=== PATIENT | male | born 1980 | race Caucasian/White ===

== ENCOUNTER 2019-03-20 14:54 | Inpatient (IN) | payer OTHER ==
--- NOTE | 2019-03-20 15:05 | Emergency Department Report ---
Blank Doc - Documentation Documentation: 39-year-old male that presents with right eye pain and right sided headache. D enies any injruies or trauma. Has blurry vision to right eye. This initial assessment/diagnostic orders/clinical plan/treatment(s) is/are subject to change based on patient's health status, clinical progression and re- assessment by fellow clinical providers in the ED. Further treatment and workup at subsequent clinical providers discretion. Patient/guardians urged not to elope from the ED as their condition may be serious if not clinically assessed and managed. Initial orders include: 1- Patient sent to MAIN ED for further evaluation and treatment 2- CT head 3- labs 4- Visual testing/gonzales lamp/tonopen
[2019-03-20 15:36] LABS: Bilirubin,Urine NEG (Negative); Blood,Urine NEG (Negative); Color,Urine Yellow (Yellow); Mucus,Urine FEW /HPF; Protein,Urine <15 mg/dL mg/dL (Negative); Urobilinogen,Urine < 2.0 mg/dL (<2.0)
[2019-03-20 15:57] LABS: Basophils % (Auto) 0.2 % (0.0-1.8); Eosinophils # (Auto) 0.1 K/mm3 (0.0-0.4); Eosinophils % (Auto) 0.9 % (0.0-4.3); Hematocrit 42.2 % (35.5-45.6); Hemoglobin 13.8 gm/dl (11.8-15.2); Lymphocytes # (Auto) 0.9 K/mm3 (1.2-5.4); Lymphocytes % (Auto) 11.1 % (13.4-35.0); Mean Corpuscular HGB Conc 33 % (32-34); Mean Corpuscular Volume 80 fl (84-94); Monocytes # (Auto) 0.5 K/mm3 (0.0-0.8); Monocytes % (Auto) 5.6 % (0.0-7.3); Platelet Count 245 K/mm3 (140-440); Red Blood Count 5.31 M/mm3 (3.65-5.03); Red Cell Distribution Width 13.6 % (13.2-15.2)
[2019-03-20] MEDS ORDERED: SODIUM CHLORIDE 0.9% 500 ML 500 ML IV ONE (16:03)
[2019-03-20 16:07] LABS: Alanine Aminotransferase 18 units/L (7-56); Albumin 4.4 g/dL (3.9-5); BUN/Creatinine Ratio 22; Blood Urea Nitrogen 13 mg/dL (9-20); Calcium 9.3 mg/dL (8.4-10.2); Hemolysis Index 6
--- NOTE | 2019-03-20 16:07 | Event Note ---
Date of service: 03/20/19 Face to Face: Patient is a 39-year-old gentleman, presenting with painless right-sided monocular blurry loss of vision. Last known well time is 9 o'clock in the morning. Patient clinically sober with a GCS of 15. He has a nonfocal motor examination and no facial droop and is speaking in full sentences, however, he is found to have a presumed right sided intranuclear ophthalmoplegia. Presents more than 4.5 hours after symptom onset, and is therefore not a TPA candidate. He does not have any neck pain or stiffness, and has no meningeal signs. Seen in consultation with stroke neurology. CT angiogram head and neck ordered to exclude large vessel occlusion and/or aneurysm. Hypertension reviewed and appreciated, hydralazine ordered. Noncontrast CT scan of the brain is negative for acute disease. Screening laboratory studies are reviewed and appreciated. Vital Signs 03/20/19 03/20/19 03/20/19 15:05 15:57 16:58 Temperature 97.6 F 97.7 F Pulse Rate 65 54 L 52 L Respiratory 18 18 Rate Blood Pressure 197/93 189/86 Blood Pressure 190/87 [Right] O2 Sat by Pulse 100 96 Oximetry Lab Results 03/20/19 03/20/19 03/20/19 Range/Units 15:26 15:35 15:35 WBC 8.1 (4.5-11.0) K/mm3 RBC 5.31 H (3.65-5.03) M/mm3 Hgb 13.8 (11.8-15.2) gm/dl Hct 42.2 (35.5-45.6) % MCV 80 L (84-94) fl MCH 26 L (28-32) pg MCHC 33 (32-34) % RDW 13.6 (13.2-15.2) % Plt Count 245 (140-440) K/mm3 Lymph % (Auto) 11.1 L (13.4-35.0) % [place] % (Auto) 5.6 (0.0-7.3) % Eos % (Auto) 0.9 (0.0-4.3) % Baso % (Auto) 0.2 (0.0-1.8) % Lymph # 0.9 L (1.2-5.4) K/mm3 [place] # 0.5 (0.0-0.8) K/mm3 Eos # 0.1 (0.0-0.4) K/mm3 Baso # 0.0 (0.0-0.1) K/mm3 Seg Neutrophils % 82.2 H (40.0-70.0) % Seg Neutrophils # 6.7 (1.8-7.7) K/mm3 PT (12.2-14.9) Sec. INR (0.87-1.13) APTT (24.2-36.6) Sec. Thrombin Time (15.1-19.6) Sec. Sodium 139 (137-145) mmol/L Potassium 3.9 (3.6-5.0) mmol/L Chloride 103.2 (98-107) mmol/L Carbon Dioxide 22 (22-30) mmol/L Anion Gap 18 mmol/L BUN 13 (9-20) mg/dL Creatinine 0.6 L (0.8-1.5) mg/dL Estimated GFR > 60 ml/min BUN/Creatinine Ratio 22 % Glucose 111 H (75-100) mg/dL Calcium 9.3 (8.4-10.2) mg/dL Total Bilirubin 0.70 (0.1-1.2) mg/dL AST 20 (5-40) units/L ALT 18 (7-56) units/L Alkaline Phosphatase 66 (35-129) units/L Total Creatine Kinase (55-170) units/L CK-MB (CK-2) (0.0-4.0) ng/mL CK-MB (CK-2) Rel Index (0-4) Troponin T (0.00-0.029) ng/mL Total Protein 7.5 (6.3-8.2) g/dL Albumin 4.4 (3.9-5) g/dL Albumin/Globulin Ratio 1.4 % Urine Color Yellow (Yellow) Urine Turbidity Clear (Clear) Urine pH 7.0 (5.0-7.0) Ur Specific [place] 1.018 (1.003-1.030) Urine Protein <15 mg/dl (Negative) mg/dL Urine Glucose (UA) Neg (Negative) mg/dL Urine Ketones Neg (Negative) mg/dL Urine Blood Neg (Negative) Urine Nitrite Neg (Negative) Urine Bilirubin Neg (Negative) Urine Urobilinogen < 2.0 (<2.0) mg/dL Ur Leukocyte Esterase Neg (Negative) Urine WBC (Auto) 2.0 (0.0-6.0) /HPF Urine RBC (Auto) 2.0 (0.0-6.0) /HPF U Epithel Cells (Auto) < 1.0 (0-13.0) /HPF Urine Mucus Few /HPF 03/20/19 03/20/19 Range/Units 16:08 16:08 WBC (4.5-11.0) K/mm3 RBC (3.65-5.03) M/mm3 Hgb (11.8-15.2) gm/dl Hct (35.5-45.6) % MCV (84-94) fl MCH (28-32) pg MCHC (32-34) % RDW (13.2-15.2) % Plt Count (140-440) K/mm3 Lymph % (Auto) (13.4-35.0) % [place] % (Auto) (0.0-7.3) % Eos % (Auto) (0.0-4.3) % Baso % (Auto) (0.0-1.8) % Lymph # (1.2-5.4) K/mm3 [place] # (0.0-0.8) K/mm3 Eos # (0.0-0.4) K/mm3 Baso # (0.0-0.1) K/mm3 Seg Neutrophils % (40.0-70.0) % Seg Neutrophils # (1.8-7.7) K/mm3 PT 12.4 (12.2-14.9) Sec. INR 0.92 (0.87-1.13) APTT 27.3 (24.2-36.6) Sec. Thrombin Time 15.2 (15.1-19.6) Sec. Sodium (137-145) mmol/L Potassium (3.6-5.0) mmol/L Chloride (98-107) mmol/L Carbon Dioxide (22-30) mmol/L Anion Gap mmol/L BUN (9-20) mg/dL Creatinine (0.8-1.5) mg/dL Estimated GFR ml/min BUN/Creatinine Ratio % Glucose (75-100) mg/dL Calcium (8.4-10.2) mg/dL Total Bilirubin (0.1-1.2) mg/dL AST (5-40) units/L ALT (7-56) units/L Alkaline Phosphatase (35-129) units/L Total Creatine Kinase 151 (55-170) units/L CK-MB (CK-2) 2.7 (0.0-4.0) ng/mL CK-MB (CK-2) Rel Index 1.7 (0-4) Troponin T < 0.010 (0.00-0.029) ng/mL Total Protein (6.3-8.2) g/dL Albumin (3.9-5) g/dL Albumin/Globulin Ratio % Urine Color (Yellow) Urine Turbidity (Clear) Urine pH (5.0-7.0) Ur Specific [place] (1.003-1.030) Urine Protein (Negative) mg/dL Urine Glucose (UA) (Negative) mg/dL Urine Ketones (Negative) mg/dL Urine Blood (Negative) Urine Nitrite (Negative) Urine Bilirubin (Negative) Urine Urobilinogen (<2.0) mg/dL Ur Leukocyte Esterase (Negative) Urine WBC (Auto) (0.0-6.0) /HPF Urine RBC (Auto) (0.0-6.0) /HPF U Epithel Cells (Auto) (0-13.0) /HPF Urine Mucus /HPF
[2019-03-20] MEDS ORDERED: hydrALAZINE 20 MG/1 ML INJ IV ONE (16:11)
--- NOTE | 2019-03-20 16:14 | Consultation ---
History of Present Illness Consult date: 03/20/19 Medications and Allergies Allergies Allergy/AdvReac Type Severity Reaction Status Date / Time No Known Allergies Allergy Unverified 03/20/19 14:57 Active Meds: Active Medications Sodium Chloride (Nacl 0.9% 500 Ml) 500 mls @ 999 mls/hr IV ONCE ONE Stop: 03/20/19 16:33 Physical Examination - Vital Signs Vital Signs: Vital Signs Temp Pulse Resp BP Pulse Ox 97.6 F 65 18 197/93 100 03/20/19 15:05 03/20/19 15:05 03/20/19 15:05 03/20/19 15:05 03/20/19 15:05 Results - Laboratory Findings CBC and BMP: 03/20/19 15:35 03/20/19 15:35 Abnormal Lab Findings: Abnormal Labs 03/20/19 03/20/19 15:35 15:35 RBC 5.31 H MCV 80 L MCH 26 L Lymph % (Auto) 11.1 L Lymph # 0.9 L Seg Neutrophils % 82.2 H Creatinine 0.6 L Glucose 111 H Assessment and Plan [facility] Date of Service: 03/20/2019 16:47:43 Impression: RO Acute Ischemic Stroke vs demyelination Comments: patient presents with headache, nausea and vomiting, diplopia, concern for posterior circulation stroke vs demyelination in this age group, last time known well>4.5 hours therefore not a candidate for IV tPA. due to gaze impairment will get CTA head and neck to rule out Large Vessel Occlusion Mechanism of Stroke: Possible Thromboembolic Possible Cardioembolic Small Vessel Disease Metrics: Last Known Well: 03/20/2019 16:50:21 [facility] Notification Time: 03/20/2019 16:47:43 Arrival Time: 03/20/2019 14:54:00 Stamp Time: 03/20/2019 16:47:43 Time First Login Attempt: 03/20/2019 16:50:00 Video Start Time: 03/20/2019 16:50:00 Symptoms: nausea and vomiting, headache, double vision NIHSS Start Assessment Time: 03/20/2019 16:50:07 Patient is not a candidate for tPA. Patient was not deemed candidate for tPA thrombolytics because of Last Well Known Above 4.5 Hours. Video End Time: 03/20/2019 16:56:40 CT head showed no acute hemorrhage or acute core infarct. CT head was reviewed. Advanced imaging CTA head and neck obtained. ER Physician notified of the decision on thrombolytics management on 03/20/2019 16:56:25 Our recommendations are outlined below. Recommendations: Activate Stroke Protocol Admission/Order Set Stroke/Telemetry Floor Neuro Checks Bedside Swallow Eval DVT Prophylaxis IV Fluids, Normal Saline Head of Bed Below 30 Degrees Euglycemia and Avoid Hyperthermia (PRN Acetaminophen) Antiplatelet Therapy Recommended Recommended Scan: MRI Head with and Without Contrast Echocardiogram - Transthoracic Echocardiogram Lipid Panel to Be Obtained, if Not Done in the Last Three Months Therapies: Physical Therapy, Occupational Therapy, Speech Therapy Assessment When Applicable Dysphaghia Screen: Swallow Evaluation, Bedside NPO Until Swallow Evaluation DVT prophylaxis: SCDs, Pneumatic Compression Disposition: Follow up with Teleneurology Follow up Sign Out: Discussed with Emergency Department Provider History of Present Illness: Patient is a 39 year old Male. Patient was brought by private transportation with symptoms of nausea and vomiting, headache, double vision Patient is a(n) 39 years old male , with no past medical history last known well: 9:00 Started vomiting, right eye blurriness, double vision, headache CT head showed no acute hemorrhage or acute core infarct. CT head was reviewed. Last seen normal was beyond 4.5 hours of presentation. There is no history of hemorrhagic complications or intracranial hemorrhage. There is no history of Recent Anticoagulants. There is no history of recent major surgery. There is no history of recent stroke. Examination: 1A: Level of Consciousness - Alert; keenly responsive + 0 1B: Ask Month and Age - Both Questions Right + 0 1C: Blink Eyes & Squeeze Hands - Performs Both Tasks + 0 2: Test Horizontal Extraocular Movements - Forced Gaze Palsy: Cannot Be Overcome + 2 3: Test Visual Odom - No Visual Loss + 0 4: Test Facial Palsy (Use Grimace if Obtunded) - Normal symmetry + 0 5A: Test Left Arm Motor Drift - No Drift for 10 Seconds + 0 5B: Test Right Arm Motor Drift - No Drift for 10 Seconds + 0 6A: Test Left Leg Motor Drift - No Drift for 5 Seconds + 0 6B: Test Right Leg Motor Drift - No Drift for 5 Seconds + 0 7: Test Limb Ataxia (FNF/Heel-[place]) - No Ataxia + 0 8: Test Sensation - Normal; No sensory loss + 0 9: Test Language/Aphasia - Normal; No aphasia + 0 10: Test Dysarthria - Normal + 0 11: Test Extinction/Inattention - No abnormality + 0 NIHSS Score: 2 Patient was informed the Neurology Consult would happen via TeleHealth consult by way of interactive audio and video telecommunications and consented to receiving care in this manner. Due to the immediate potential for life-threatening deterioration due to under lying acute neurologic illness, I spent 35 minutes providing critical care. This time includes time for face to face visit via telemedicine, review of medical records, imaging studies and discussion of findings with providers, the patient and/or family. Dr Rambo Noel [facility] Case [id number]
[2019-03-20 16:33] LABS: Creatine Kinase MB 2.7 ng/mL (0.0-4.0)
[2019-03-20 16:40] LABS: INR 0.92 (0.87-1.13)
[2019-03-20 16:41] LABS: Partial Thromboplastin Time 27.3 Sec. (24.2-36.6); Thrombin Time 15.2 Sec. (15.1-19.6)
--- NOTE | 2019-03-20 16:58 | Cat Scan Report ---
CT HEAD WITHOUT CONTRAST INDICATION / CLINICAL INFORMATION: headache and right sided eye pain. TECHNIQUE: All CT scans at this location are performed using CT dose reduction for ALARA by means of automated e xposure control. COMPARISON: None available. FINDINGS: HEMORRHAGE: No evidence of intracranial hemorrhage or extra-axial fluid collection. EXTRA-AXIAL SPACES: Cortical sulci, sylvian fissures and basilar cisterns have an unremarkable appear ance. VENTRICULAR SYSTEM: The ventricular system is of normal size and configuration. CEREBRAL PARENCHYMA: No areas of abnormal brain parenchymal attenuation are identified. There is no i ndication of recent infarction. MIDLINE SHIFT OR HERNIATION: There is no mass effect. CEREBELLUM / BRAINSTEM: Brainstem and cerebellum have an unremarkable appearance. INTRACRANIAL VESSELS:No abnormalities are identified on this noncontrast head CT. ORBITS: visualized portions of the orbits have an unremarkable appearance. SOFT TISSUES of HEAD: No significant abnormality. CALVARIUM: Evaluation of bone windows reveals no abnormalities. PARANASAL SINUSES / MASTOID AIR CELLS: Mild inflammatory mucosal changes are present within several e thmoid air cells bilaterally and within both maxillary sinuses. ADDITIONAL FINDINGS: None. IMPRESSION: 1. No intracranial abnormality on head CT without contrast. Code stroke: I called report to Dr. Ray of the [facility] emergency department at about 1552 (Central standard time). Signer Name: Fransico Garcia MD Signed: 03/20/2019 4:54 PM Workstation Name: [id number]
--- NOTE | 2019-03-20 17:41 | Emergency Department Report ---
<SHEA ORLANDO - Last Filed: 03/20/19 17:59> ED Neuro Deficit HPI - General Chief Complaint: Neuro Symptoms/Deficit Stated Complaint: RT SIDE BLURRY/NUMB Time Seen by Provider: 03/20/19 15:03 Source: patient Mode of arrival: Ambulatory Limitations: No Limitations - History of Present Illness Initial Comments: pt is a 39-year-old male presents emergency room with complaints of right eye blurriness that began suddenly at 9 AM this morning. He states that he went to work and then began to feel symptoms afterwards. States he then had an episode of vomiting. He is complaining of double vision, dizziness, lightheadedness, h eadache, nausea, vomiting, tingling in the right side of his face. He denies any complete numbness or unilateral weakness, CP, SOB. He denies ever having this in the past. He denies any past medical history, daily medications, allergies medications. - Related Data Home Medications: Home Medications Medication Instructions Recorded Confirmed Last Taken No Known Home Medications [No 03/20/19 03/20/19 Unknown Reported Home Medications] Allergies/Adverse Reactions: Allergies Allergy/AdvReac Type Severity Reaction Status Date / Time No Known Allergies Allergy Unverified 03/20/19 14:57 ED Review of Systems Comment: All other systems reviewed and negative ED Past Medical Hx - Past Medical History Previous Medical History?: No - Surgical History Past Surgical History?: No - Social History Smoking Status: Never Smoker Substance Use Type: None - Medications Home Medications: Home Medications Medication Instructions Recorded Confirmed Last Taken Type No Known Home Medications [No 03/20/19 03/20/19 Unknown History Reported Home Medications] ED Neuro Physical Exam - General Limitations: No Limitations General appearance: alert, in no apparent distress Suspected Stroke: Yes - Head Head exam: Present: atraumatic, normocephalic - Eye Eye exam: Present: PERRL, other (with horizontal movement of the eyes the right eye remains fixed or exhibits nystagmus). Absent: scleral icterus, conjunctival injection, periorbital swelling, periorbital tenderness - ENT ENT exam: Present: mucous membranes moist - Respiratory Respiratory exam: Present: normal lung sounds bilaterally. Absent: respiratory distress, wheezes, rales, rhonchi, stridor, chest wall tenderness, accessory muscle use, decreased breath sounds, prolonged expiratory - Cardiovascular Cardiovascular Exam: Present: regular rate, normal rhythm, normal heart sounds. Absent: systolic murmur, diastolic murmur, rubs, gallop - Neurological Exam Neurological exam: Present: alert, oriented X3 - NIHSS Assessment Interval: Baseline 1a. Level of Consciousness: alert/keenly responsive 1b. LOC Questions: answers both correctly 1c. LOC Commands: performs tasks correctly 2. Best Gaze: forced deviation 3. Visual: no visual loss 4. Facial Palsy: normal symmetrical movement 5b. Motor Arm Right: no drift 5a. Motor Arm Left: no drift 6a. Motor Leg Left: no drift 6b. Motor Leg Right: no drift 7. Limb Ataxia: absent 8. Sensory: normal 9. Best Language: no aphasia 10. Dysarthria: normal 11. Extinction/Inattention: no abnormality Total Score: 2 Stroke Severity: Minor Stroke - Psychiatric Psychiatric exam: Present: normal affect, normal mood - Skin Skin exam: Present: warm, dry, intact - Lab Data Result diagrams: 03/20/19 15:35 03/20/19 15:35 - EKG Data EKG shows normal: sinus rhythm, axis, intervals, QRS complexes Rate: bradycardia 03/20/19 18:01 poor R wave progression no STEMI - Radiology Data Radiology results: report reviewed CT HEAD WITHOUT CONTRAST INDICATION / CLINICAL INFORMATION: headache and right sided eye pain. TECHNIQUE: All CT scans at this location are performed using CT dose reduction for ALARA by means of automated exposure control. COMPARISON: None available. FINDINGS: HEMORRHAGE: No evidence of intracranial hemorrhage or extra-axial fluid collection. EXTRA-AXIAL SPACES: Cortical sulci, sylvian fissures and basilar cisterns have an unremarkable appearance. VENTRICULAR SYSTEM: The ventricular system is of normal size and configuration. CEREBRAL PARENCHYMA: No areas of abnormal brain parenchymal attenuation are identified. There is no indication of recent infarction. MIDLINE SHIFT OR HERNIATION: There is no mass effect. CEREBELLUM / BRAINSTEM: Brainstem and cerebellum have an unremarkable appearance. INTRACRANIAL VESSELS:No abnormalities are identified on this noncontrast head CT. ORBITS: visualized portions of the orbits have an unremarkable appearance. SOFT TISSUES of HEAD: No significant abnormality. CALVARIUM: Evaluation of bone windows reveals no abnormalities. PARANASAL SINUSES / MASTOID AIR CELLS: Mild inflammatory mucosal changes are pr esent within several ethmoid air cells bilaterally and within both maxillary sinuses. ADDITIONAL FI NDINGS: None. IMPRESSION: 1. No intracranial abnormality on head CT without contrast. Code stroke: I called report to Dr. Ray of the [facility] emergency department at about 1552 (Central standard time). Signer Name: Fransico Garcia MD Signed: 03/20/2019 4:54 PM Workstation Name: [id number] Transcribed By: Dictated By: Fransico Garcia MD Electronically Authenticated By: Fransico Garcia MD Signed Date/Time: 03/20/191653 DD/ 48 TD/TT: - Medical Decision Making pt is a 39-year-old male presents emergency room with complaints of right eye blurriness that began suddenly at 9 AM this morning. He states that he went to work and then began to feel symptoms afterwards. States he then had an episode of vomiting. He is complaining of double vision, dizziness, lightheadedness, headache, nausea, vomiting, tingling in the right side of his face. He denies any complete numbness or unilateral weakness, CP, SOB. He denies ever having this in the past. He denies any past medical history, daily medications, allergies medications. On initial evaluation code stroke was immediately called . Patient is exhibiting internuclear ophthalmoplegia. NIH scale is 2. CT head without contrast is within normal limits. teleneurology consult performed at bedside and they recommended CT angiogram head and neck and admission with MRI. teleneurology states that patient is not a TPA candidate. visual acuity is 20/50 right eye, 20/50 left eye, and 20/50 both eyes. ED Disposition Clinical Impression: Internuclear ophthalmoplegia, Hypertensive urgency Disposition: OP ADMIT IP TO THIS HOSP Condition: Stable Referrals: PRIMARY CAREMD [Primary Care Provider] - 3-5 Days <MUMTAZ RAY - Last Filed: 03/20/19 21:29> ED Review of Systems ROS: Stated complaint: RT SIDE BLURRY/NUMB Other details as noted in HPI ED Course Vital Signs 03/20/19 03/20/19 03/20/19 15:05 15:57 16:58 Temperature 97.6 F 97.7 F Pulse Rate 65 54 L 52 L Respiratory 18 18 Rate Blood Pressure 197/93 189/86 Blood Pressure 190/87 [Right] O2 Sat by Pulse 100 96 Oximetry 03/20/19 03/20/19 18:00 19:00 Temperature 98.2 F Pulse Rate 52 L 64 Respiratory 18 16 Rate Blood Pressure Blood Pressure 171/83 119/68 [Right] O2 Sat by Pulse 96 98 Oximetry - Reevaluation(s) Reevaluation #1: 03/20/19 21:25 CT angiogram results are reviewed and appreciated. I suspect that thoracic aortic findings are likely incidental and not causative of the patient's pathology. His blood pressure is improved. I discussed the patient's history and physical exam findings which CT surgeon on-call for [place] Dr Jose Angel Xiao He recommends that these findings do not require emergent CT surgery intervention. He further recommends that patient may be admitted to this medical service at this hospital, and the stroke workup can proceed as planned. An echocardiogram is recommended, antiplatelet therapy is acceptable, and blood pressure management also recommended. He further recommends that the patient may follow-up in his office for this presumed incidental finding after his acute neurologic issues have been resolving the patient has been discharged. His office is at [phone] The case is presented to the Hospital physician, Dr. Silveira, who accepts the patient to his service - Lab Data Result diagrams: 03/20/19 15:35 03/20/19 15:35 Lab Results 03/20/19 03/20/19 03/20/19 Range/Units 15:26 15:35 15:35 WBC 8.1 (4.5-11.0) K/mm3 RBC 5.31 H (3.65-5.03) M/mm3 Hgb 13.8 (11.8-15.2) gm/dl Hct 42.2 (35.5-45.6) % MCV 80 L (84-94) fl MCH 26 L (28-32) pg MCHC 33 (32-34) % RDW 13.6 (13.2-15.2) % Plt Count 245 (140-440) K/mm3 Lymph % (Auto) 11.1 L (13.4-35.0) % [place] % (Auto) 5.6 (0.0-7.3) % Eos % (Auto) 0.9 (0.0-4.3) % Baso % (Auto) 0.2 (0.0-1.8) % Lymph # 0.9 L (1.2-5.4) K/mm3 [place] # 0.5 (0.0-0.8) K/mm3 Eos # 0.1 (0.0-0.4) K/mm3 Baso # 0.0 (0.0-0.1) K/mm3 Seg Neutrophils % 82.2 H (40.0-70.0) % Seg Neutrophils # 6.7 (1.8-7.7) K/mm3 PT (12.2-14.9) Sec. INR (0.87-1.13) APTT (24.2-36.6) Sec. Thrombin Time (15.1-19.6) Sec. Sodium 139 (137-145) mmol/L Potassium 3.9 (3.6-5.0) mmol/L Chloride 103.2 (98-107) mmol/L Carbon Dioxide 22 (22-30) mmol/L Anion Gap 18 mmol/L BUN 13 (9-20) mg/dL Creatinine 0.6 L (0.8-1.5) mg/dL Estimated GFR > 60 ml/min BUN/Creatinine Ratio 22 % Glucose 111 H (75-100) mg/dL Calcium 9.3 (8.4-10.2) mg/dL Total Bilirubin 0.70 (0.1-1.2) mg/dL AST 20 (5-40) units/L ALT 18 (7-56) units/L Alkaline Phosphatase 66 (35-129) units/L Total Creatine Kinase (55-170) units/L CK-MB (CK-2) (0.0-4.0) ng/mL CK-MB (CK-2) Rel Index (0-4) Troponin T (0.00-0.029) ng/mL Total Protein 7.5 (6.3-8.2) g/dL Albumin 4.4 (3.9-5) g/dL Albumin/Globulin Ratio 1.4 % Urine Color Yellow (Yellow) Urine Turbidity Clear (Clear) Urine pH 7.0 (5.0-7.0) Ur Specific [place] 1.018 (1.003-1.030) Urine Protein <15 mg/dl (Negative) mg/dL Urine Glucose (UA) Neg (Negative) mg/dL Urine Ketones Neg (Negative) mg/dL Urine Blood Neg (Negative) Urine Nitrite Neg (Negative) Urine Bilirubin Neg (Negative) Urine Urobilinogen < 2.0 (<2.0) mg/dL Ur Leukocyte Esterase Neg (Negative) Urine WBC (Auto) 2.0 (0.0-6.0) /HPF Urine RBC (Auto) 2.0 (0.0-6.0) /HPF U Epithel Cells (Auto) < 1.0 (0-13.0) /HPF Urine Mucus Few /HPF 03/20/19 03/20/19 Range/Units 16:08 16:08 WBC (4.5-11.0) K/mm3 RBC (3.65-5.03) M/mm3 Hgb (11.8-15.2) gm/dl Hct (35.5-45.6) % MCV (84-94) fl MCH (28-32) pg MCHC (32-34) % RDW (13.2-15.2) % Plt Count (140-440) K/mm3 Lymph % (Auto) (13.4-35.0) % [place] % (Auto) (0.0-7.3) % Eos % (Auto) (0.0-4.3) % Baso % (Auto) (0.0-1.8) % Lymph # (1.2-5.4) K/mm3 [place] # (0.0-0.8) K/mm3 Eos # (0.0-0.4) K/mm3 Baso # (0.0-0.1) K/mm3 Seg Neutrophils % (40.0-70.0) % Seg Neutrophils # (1.8-7.7) K/mm3 PT 12.4 (12.2-14.9) Sec. INR 0.92 (0.87-1.13) APTT 27.3 (24.2-36.6) Sec. Thrombin Time 15.2 (15.1-19.6) Sec. Sodium (137-145) mmol/L Potassium (3.6-5.0) mmol/L Chloride (98-107) mmol/L Carbon Dioxide (22-30) mmol/L Anion Gap mmol/L BUN (9-20) mg/dL Creatinine (0.8-1.5) mg/dL Estimated GFR ml/min BUN/Creatinine Ratio % Glucose (75-100) mg/dL Calcium (8.4-10.2) mg/dL Total Bilirubin (0.1-1.2) mg/dL AST (5-40) units/L ALT (7-56) units/L Alkaline Phosphatase (35-129) units/L Total Creatine Kinase 151 (55-170) units/L CK-MB (CK-2) 2.7 (0.0-4.0) ng/mL CK-MB (CK-2) Rel Index 1.7 (0-4) Troponin T < 0.010 (0.00-0.029) ng/mL Total Protein (6.3-8.2) g/dL Albumin (3.9-5) g/dL Albumin/Globulin Ratio % Urine Color (Yellow) Urine Turbidity (Clear) Urine pH (5.0-7.0) Ur Specific [place] (1.003-1.030) Urine Protein (Negative) mg/dL Urine Glucose (UA) (Negative) mg/dL Urine Ketones (Negative) mg/dL Urine Blood (Negative) Urine Nitrite (Negative) Urine Bilirubin (Negative) Urine Urobilinogen (<2.0) mg/dL Ur Leukocyte Esterase (Negative) Urine WBC (Auto) (0.0-6.0) /HPF Urine RBC (Auto) (0.0-6.0) /HPF U Epithel Cells (Auto) (0-13.0) /HPF Urine Mucus /HPF - EKG Data -: EKG Interpreted by Id - Radiology Data Radiology results: report reviewed, image reviewed Print Report Referring Physician: SHEA ORLANDO Patient Name: MIRI CHAVEZ Date of : 1980 Sex: Male Report Date: 2019-03-20 Report Status: Finalized Findings [facility] [address] [place] [address] Cat Scan Report Signed Patient: MIRI CHAVEZ MR#: [id number] 43 : 1980 Acct:[id number] Age/Sex: 39 / M ADM Date: 03/20/19 Loc: ED Attending Dr: Ordering Physician: GENA TORIBIO Date of Service: 03/20/19 Procedure(s): CT angio head Accession Number(s): [id number] cc: GENA TORIBIO CTA head with intravenous contrast CLINICAL HISTORY: stroke sx TECHNIQUE: 0.625 mm thick contiguous axial scans were obtained from the skull base to the skull vertex during rapid bolus administration of intravenous contrast material. Multiplanar reconstructions were produced in the coronal and sagittal planes. In addition 3 plane MIP instructions were produced and reviewed for this report. The axial source images and reconstructed images were reviewed for this report. All CT scans at this location are performed using CT dose reduction for ALARA by means of automated exposure control. FINDINGS: Internal carotid arteries: Petrous, cavernous, clinoid and supraclinoid segments of the internal carotid arteries have a normal and symmetrical appearance bilaterally. Anterior cerebral arteries: Symmetrical A1 and A2 segments of both anterior cerebral arteries is noted. There is no indication of stenosis or occlusion. There is no evidence of a, aneurysm. Middle cerebral arteries: M1 segments of both middle cerebral arteries have an unremarkable appearance. M2 segments are bilaterally symmetrical. There is no indication of large vessel occlusion or aneurysm. Vertebral arteries: Right vertebral artery is dominant. Both vertebral arteries contribute to the basilar artery origin. Basilar artery: Basilar artery is diminutive in size in large part due to the presence of large bilateral posterior communicating arteries. The P1 segments of the posterior cerebral arteries are hypoplastic. Posterior cerebral arteries: Bilaterally symmetrical visualization of the posterior cerebral arteries is demonstrated with no indication of stenosis or occlusion. The caliber of the intracranial vessels is normal throughout. There is no indication of intracranial stenosis or large vessel occlusion. There is no indication of vasculitis. There is no evidence of aneurysm or other vascular malformation. IMPRESSION: 1. No abnormalities are identified on CTA head. CONTRAST DOSE REPORT: Omnipaque 350: 100 ml administered intravenously. Signer Name: Fransico Garcia MD Signed: 03/20/2019 7:14 PM Workstation Name: [id number] Transcribed By: Dictated By: Fransico Garcia MD Electronically Authenticated By: Fransico Garcia MD Signed Date/Time: 03/20/191913 DD/ 08 Print Report Referring Physician: SHEA ORLANDO Patient Name: MIRI CHAVEZ Date of : 1980 Sex: Male Report Date: 2019-03-20 Report Status: Finalized Findings [address] [place] [address] Cat Scan Report Signed Patient: MIRI CHAVEZ MR#: [id number] 43 : 1980 Acct:[id number] Age/Sex: 39 / M ADM Date: 03/20/19 Loc: ED Attending Dr: Ordering Physician: GENA TORIBIO Date of Service: 03/20/19 Procedure(s): CT angio neck Accession Number(s): [id number] cc: GENA TORIBIO CTA neck without and with intravenous contrast material CLINICAL HISTORY: stroke sx. Cerebrovascular accident. TECHNIQUE: Following acquisition of a timing bolus 0.625 mm thick contiguous axial scans were obtained from aortic arch to the skull base during rapid bolus intravenous contrast infusion. In addition to evaluation of axial source images multiplanar reconstructions were produced and reviewed for this report. 3 plane MIP reconstructions were produced and reviewed. FINDINGS: Thoracic aorta: The brachiocephalic artery is enlarged. This vessel gives rise to an unusually large and tortuous right mammary (internal thoracic) artery. 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 A normal left subclavian artery is not demonstrated on this study. Instead multiple large tortuous collateral vessels appear to cross from right to left to reconstitute the left subclavian artery in the subclavian fossa. Visualization of the region of the left subclavian artery origin is limited due to beam hardening artifact secondary to the presence of dense contrast in the left subclavian vein and innominate vein Right carotid artery: Right common carotid artery, right carotid bifurcation and right internal carotid artery all have a normal appearance. There is no indication of atherosclerotic disease or fibrous dysplasia. Left carotid artery: Left common carotid artery, left carotid bifurcation and cervical segments of the left internal carotid artery all have a normal appearance. Vertebral arteries: The right vertebral artery is dominant. Contrast opacification of the left vertebral artery in the transversalis foramina does not appear until the level of the C3 vertebrae. Both vertebral arteries contribute to the basilar artery origin. There is no indication of stenosis along the course of the vertebral arteries. The degree of stenosis, if any, is determined utilizing NASCET like criteria. In this case there is no indication of hemodynamically significant stenosis at the carotid bifurcations or elsewhere.. Evaluation of the nonvascular soft tissue structures reveal no abnormality. There is no indication of cervical lymphadenopathy. No abnormalities are seen along the course of the airway. Visualized portions of the parotid glands and the submandibular salivary glands have a normal appearance. Thyroid gland has a normal appearance. Evaluation of the lung apices reveals no evidence of lung nodule or infiltrate. Evaluation of the cervical spine revealed no significant abnormalities. IMPRESSION: 1. 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 Correlation with chest radiograph is suggested. 2. Marked enlargement and tortuosity of the right mammary artery secondary to thoracic coarctation. The brachiocephalic artery is also enlarged 3. 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 Obtaining differential blood pressures from the right and left upper extremities would be useful for further evaluation of these findings. 4. No indication of hemodynamically significant stenosis at the carotid bifurcations or elsewhere. Contrast dose report: Omnipaque 350: 100 ml, administered intravenously All CT examinations performed at this facility utilize modulated dose reduction, iterative reconstruction or weight-based dosing, as appropriate, to obtain a radiation dose which is as low as can reasonably be achieved. Signer Name: Fransico Garcia MD Signed: 03/20/2019 7:38 PM Workstation Name: [id number] Transcribed By: Dictated By: Fransico Garcia MD Electronically Authenticated By: Fransico Garcia MD Signed Date/Time: 03/20/191937 - Thrombolytic Inclusion/Exclusion Thrombolytic Exclusion Criteria: Symptom Onset > 3 Hours Critical care attestation.: If time is entered above; I have spent that time in minutes in the direct care of this critically ill patient, excluding procedure time. ED Disposition Is pt being admited?: Yes Does the pt Need Aspirin: Yes
--- NOTE | 2019-03-20 19:19 | Cat Scan Report ---
CTA head with intravenous contrast CLINICAL HISTORY: stroke sx TECHNIQUE: 0.625 mm thick contiguous axial scans were obtained from the skull base to the skull vertex during ra pid bolus administration of intravenous contrast material. Multiplanar reconstructions were produced in the coronal and sagittal planes. In addition 3 plane MIP instructions were produced and reviewed f or this report. The axial source images and reconstructed images were reviewed for this report. All CT scans at this location are performed using CT dose reduction for ALARA by means of automated e xposure control. FINDINGS: Internal carotid arteries: Petrous, cavernous, clinoid and supraclinoid segments of the internal resendiz tid arteries have a normal and symmetrical appearance bilaterally. Anterior cerebral arteries: Symmetrical A1 and A2 segments of both anterior cerebral arteries is note d. There is no indication of stenosis or occlusion. There is no evidence of a, aneurysm. Middle cerebral arteries: M1 segments of both middle cerebral arteries have an unremarkable appearanc e. M2 segments are bilaterally symmetrical. There is no indication of large vessel occlusion or aneur ysm. Vertebral arteries: Right vertebral artery is dominant. Both vertebral arteries contribute to the bas ilar artery origin. Basilar artery: Basilar artery is diminutive in size in large part due to the presence of large bilat eral posterior communicating arteries. The P1 segments of the posterior cerebral arteries are hypopla stic. Posterior cerebral arteries: Bilaterally symmetrical visualization of the posterior cerebral arteries is demonstrated with no indication of stenosis or occlusion. The caliber of the intracranial vessels is normal throughout. There is no indication of intracranial stenosis or large vessel occlusion. There is no indication of vasculitis. There is no evidence of aneurysm or other vascular malformation. IMPRESSION: 1. No abnormalities are identified on CTA head. CONTRAST DOSE REPORT: Omnipaque 350: 100 ml administered intravenously. Signer Name: Fransico Garcia MD Signed: 03/20/2019 7:14 PM Workstation Name: [id number]
--- NOTE | 2019-03-20 19:43 | Cat Scan Report ---
CTA neck without and with intravenous contrast material CLINICAL HISTORY: stroke sx. Cerebrovascular accident. TECHNIQUE: Following acquisition of a timing bolus 0.625 mm thick contiguous axial scans were obtained from aort ic arch to the skull base during rapid bolus intravenous contrast infusion. In addition to evaluation of axial source images multiplanar reconstructions were produced and reviewed for this report. 3 christen ne MIP reconstructions were produced and reviewed. FINDINGS: Thoracic aorta: The brachiocephalic artery is enlarged. This vessel gives rise to an unusually large and tortuous right mammary (internal thoracic) artery. 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 A normal left subclavian artery is not demonstrated on this study. Instead multiple large tortuous brandon ateral vessels appear to cross from right to left to reconstitute the left subclavian artery in the s ubclavian fossa. Visualization of the region of the left subclavian artery origin is limited due to b eam hardening artifact secondary to the presence of dense contrast in the left subclavian vein and in nominate vein Right carotid artery: Right common carotid artery, right carotid bifurcation and right internal carot id artery all have a normal appearance. There is no indication of atherosclerotic disease or fibrous dysplasia. Left carotid artery: Left common carotid artery, left carotid bifurcation and cervical segments of th e left internal carotid artery all have a normal appearance. Vertebral arteries: The right vertebral artery is dominant. Contrast opacification of the left verteb ral artery in the transversalis foramina does not appear until the level of the C3 vertebrae. Both ve rtebral arteries contribute to the basilar artery origin. There is no indication of stenosis along th e course of the vertebral arteries. The degree of stenosis, if any, is determined utilizing NASCET like criteria. In this case there is no indication of hemodynamically significant stenosis at the carotid bifurcations or elsewhere.. Evaluation of the nonvascular soft tissue structures reveal no abnormality. There is no indication of cervical lymphadenopathy. No abnormalities are seen along the course of the airway. Visualized porti ons of the parotid glands and the submandibular salivary glands have a normal appearance. Thyroid gla nd has a normal appearance. Evaluation of the lung apices reveals no evidence of lung nodule or infil trate. Evaluation of the cervical spine revealed no significant abnormalities. IMPRESSION: 1. 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 Correlation with chest radiogra ph is suggested. 2. Marked enlargement and tortuosity of the right mammary artery secondary to thoracic coarctation. T he brachiocephalic artery is also enlarged 3. 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 Obtaining differential blood pressures from the right and left upper extrem ities would be useful for further evaluation of these findings. 4. No indication of hemodynamically significant stenosis at the carotid bifurcations or elsewhere. Contrast dose report: Omnipaque 350: 100 ml, administered intravenously All CT examinations performed at this facility utilize modulated dose reduction, iterative reconstruc tion or weight-based dosing, as appropriate, to obtain a radiation dose which is as low as can reason ably be achieved. Signer Name: Fransico Garcia MD Signed: 03/20/2019 7:38 PM Workstation Name: [id number]
[2019-03-20] MEDS ORDERED: ASPIRIN 81 MG TAB CHEW PO ONE (21:29)
[2019-03-20] MEDS ORDERED: MAGNESIUM HYDROXIDE (MOM) ORAL LIQD UDC PO PRN ×2 (22:36)
[2019-03-20] MEDS ORDERED: PROMETHAZINE 25 MG RECT SUPP PR PRN (22:36)
[2019-03-20] MEDS ORDERED: ONDANSETRON 4 MG/2 ML INJ IV PRN ×2 (22:36)
[2019-03-20] MEDS ORDERED: ACETAMINOPHEN 325 MG TAB PO PRN ×2 (22:36)
[2019-03-20] MEDS ORDERED: MORPHINE 2 MG/1 ML INJ IV PRN (22:36)
[2019-03-20] MEDS ORDERED: METOCLOPRAMIDE 10 MG TAB PO PRN (22:36)
[2019-03-21] MEDS ORDERED: ASPIRIN 325 MG TAB ONE (00:11)
[2019-03-21] MEDS ORDERED: METOCLOPRAMIDE 10 MG/2 ML INJ ONE (00:12)
[2019-03-21] MEDS ORDERED: MORPHINE 2 MG/1 ML INJ ONE (00:12)
--- NOTE | 2019-03-21 00:20 | History and Physical Report ---
History of Present Illness Date of examination: 03/20/19 Date of admission: 03/20/19 21:30 Chief complaint: Double vision History of present illness: 39-year-old male with no significant past medical history presenting to the emergency room today complaining of blurry vision which started earlier in the morning today. He states he has been having double vision, dizziness, lightheadedness, headache, nausea, vomiting, tingling in the right side of his face. He denies having similar problems in the past. Denies any numbness or weakness in his extremities. Denies any unsteady gait. Indicates he has double vision especially when he has both eyes open. He denies any fever or chills. Patient was evaluated by teleneurologist and recommended to be worked up for possible CVA. His work-up however included CT angiogram of the neck which reveals coarctation of the aorta. Thoracic surgeon was consulted by the ER physician and recommendation is to schedule patient for an echocardiogram and have patient follow up on outpatient basis. Past History Past Surgical History: No surgical history Social history: smoking (Smokes about half a pack of cigarette daily), alcohol abuse (Drinks occasionally on the weekends) Family history: cancer (Mother had lung cancer and sister had brain tumor) Medications and Allergies Allergies Allergy/AdvReac Type Severity Reaction Status Date / Time No Known Allergies Allergy Verified 03/20/19 22:52 Home Medications Medication Instructions Recorded Confirmed Last Taken Type No Known Home Medications [No 03/20/19 03/20/19 Unknown History Reported Home Medications] Active Meds: Active Medications Acetaminophen (Tylenol) 650 mg PO Q4H PRN PRN Reason: Pain MILD(1-3)/Fever >100.5/VELASCO Aspirin (Aspirin) 325 mg PO QDAY VICKY Bisacodyl (Dulcolax) [address] QDAY PRN PRN Reason: Constipation Heparin Sodium (Porcine) (Heparin) 5,000 unit SUB-Q Q8HR VICKY Magnesium Hydroxide (Milk Of Magnesia) 30 ml PO Q4H PRN PRN Reason: Constipation Metoclopramide HCl (Reglan) 10 mg PO Q6H PRN PRN Reason: Nausea And Vomiting Morphine Sulfate (Morphine) 2 mg IV Q4H PRN PRN Reason: Pain, Moderate (4-6) Ondansetron HCl (Zofran) 4 mg IV Q8H PRN PRN Reason: Nausea And Vomiting Promethazine HCl (Phenergan) [address] Q6H PRN PRN Reason: Nausea And Vomiting Sodium Chloride (Sodium Chloride Flush Syringe 10 Ml) 10 ml IV BID VICKY Sodium Chloride (Sodium Chloride Flush Syringe 10 Ml) 10 ml IV PRN PRN PRN Reason: LINE FLUSH Review of Systems Eyes: right: blurred vision, diplopia Exam - Constitutional Vitals: Temp Pulse Resp BP Pulse Ox 98.2 F 59 L 21 149/77 95 03/20/19 18:00 03/20/19 23:15 03/20/19 23:30 03/20/19 23:30 03/20/19 23:30 General appearance: Present: no acute distress, well-nourished - EENT Eyes: Present: PERRL, EOM intact ENT: hearing intact, clear oral mucosa, dentition normal - Neck Neck: Present: supple, normal ROM - Respiratory Respiratory effort: normal Respiratory: bilateral: CTA - Cardiovascular Rhythm: regular Heart Sounds: Present: S1 & S2 - Extremities Extremities: no ischemia, pulses intact, No edema Peripheral Pulses: within normal limits - Abdominal General gastrointestinal: Present: soft, non-tender, non-distended - Integumentary Integumentary: Present: clear, warm, dry - Musculoskeletal Musculoskeletal: strength equal bilaterally - Psychiatric Psychiatric: appropriate mood/affect, intact judgment & insight, cooperative - Neurologic Neurologic: CNII-XII intact, moves all extremities Results - Labs CBC & Chem 7: 03/20/19 15:35 03/20/19 15:35 Labs: Abnormal lab results 03/20/19 03/20/19 Range/Units 15:35 15:35 RBC 5.31 H (3.65-5.03) M/mm3 MCV 80 L (84-94) fl MCH 26 L (28-32) pg Lymph % (Auto) 11.1 L (13.4-35.0) % Lymph # 0.9 L (1.2-5.4) K/mm3 Seg Neutrophils % 82.2 H (40.0-70.0) % Creatinine 0.6 L (0.8-1.5) mg/dL Glucose 111 H (75-100) mg/dL Assessment and Plan - Patient Problems (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 We will request neurology follow-up in the a.m. He has been started on daily aspirin. Will monitor neurological status. (2) Hypertensive urgency Current Visit: Yes Status: Acute Plan to address problem: We will monitor vital signs closely. Patient will be given IV hydralazine as needed for blood pressure control. (3) DVT prophylaxis Current Visit: Yes Status: Acute Plan to address problem: Patient placed on subcutaneous heparin. (4) Full code status Current Visit: Yes Status: Acute
[2019-03-21] MEDS ORDERED: hydrALAZINE 20 MG/1 ML INJ IV PRN (06:02)
[2019-03-21] MEDS: HEPARIN 5,000 UNIT/1 ML VIAL SUB-Q SCH ×3 (06:31→22:44)
[2019-03-21 08:47] LABS: Basophils % (Auto) 0.4 % (0.0-1.8); Eosinophils # (Auto) 0.4 K/mm3 (0.0-0.4); Eosinophils % (Auto) 5.6 % (0.0-4.3); Hematocrit 39.4 % (35.5-45.6); Hemoglobin 13.2 gm/dl (11.8-15.2); Lymphocytes # (Auto) 1.6 K/mm3 (1.2-5.4); Lymphocytes % (Auto) 22.4 % (13.4-35.0); Mean Corpuscular HGB Conc 34 % (32-34); Mean Corpuscular Volume 79 fl (84-94); Monocytes # (Auto) 0.7 K/mm3 (0.0-0.8); Monocytes % (Auto) 10.6 % (0.0-7.3); Platelet Count 226 K/mm3 (140-440); Red Blood Count 4.99 M/mm3 (3.65-5.03); Red Cell Distribution Width 13.7 % (13.2-15.2)
[2019-03-21 08:55] LABS: INR 0.95 (0.87-1.13)
[2019-03-21 08:56] LABS: Partial Thromboplastin Time 29.2 Sec. (24.2-36.6)
--- NOTE | 2019-03-21 09:46 | Consultation ---
History of Present Illness Consult date: 03/21/19 Requesting physician: PAUL BARRAZA Reason for Consult: QUINTON Chief complaint: double vision History of present illness: 39-year-old male with a history of eating too much salts lots of red meats smoking and drinking lots of alcohol per does not have a significant past medical history arrives with acute onset of double vision and right face numbness yesterday that started around 9 AM patient arrived with hypertensive urgency 197/93 189/86 denies history of stroke in the past and denies cocaine use Patient denies blurred vision out of the right eye or left eye in fact his complaint is double vision with binocular vision It all started yesterday without loss of consciousness, seizure , patient also adds that his gait was unsteady he had numbness over the right side of his face tingling over the right side of his face On admission EKG normal sinus rhythm No atrial fibrillation on telemetry and no recurrent strokes since admission CTA chest revealed corks and of the aorta Patient did have a headache in the back of his head nonradiating 6 out of 10 no migraine features constant dull No fevers no neck stiffness No rash or symptoms to suggest meningitis Today he feels the right side of his face tingling has resolved but still has double vision and there is an obvious R third nerve palsy/right eye QUINTON, pupils sparing Currently no other focal deficits No neurological deterioration since admission No ongoing nausea vomiting vertigo, but did arrive with nausea vomiting Patient denies any seizures or loss of consciousness since admission Does add that his balance is off but that is mainly because of his eyes CT of the head reviewed and a ICP CTA head and neck reviewed no large vessel occlusion Patient endorses lightheadedness but that has improved Family history significant for cancer in the mother and sister brain tumors Social history smoking alcohol use denies drugs and cocaine Review of systems all other systems negative No prior history of MS Past History Past Surgical History: No surgical history Social history: smoking (Smokes about half a pack of cigarette daily), alcohol abuse (Drinks occasionally on the weekends) Family history: cancer (Mother had lung cancer and sister had brain tumor) Medications and Allergies Allergies Allergy/AdvReac Type Severity Reaction Status Date / Time No Known Allergies Allergy Verified 03/20/19 22:52 Home Medications Medication Instructions Recorded Confirmed Last Taken Type No Known Home Medications [No 03/20/19 03/20/19 Unknown History Reported Home Medications] Active Meds: Active Medications Acetaminophen (Tylenol) 650 mg PO Q4H PRN PRN Reason: Pain MILD(1-3)/Fever >100.5/VELASCO Aspirin (Aspirin) 325 mg PO QDAY VICKY Bisacodyl (Dulcolax) 10 mg NE QDAY PRN PRN Reason: Constipation Heparin Sodium (Porcine) (Heparin) 5,000 unit SUB-Q Q8HR VICKY Last Admin: 03/21/19 06:31 Dose: 5,000 unit Documented by: Hydralazine HCl (Apresoline) 10 mg IV Q4HR PRN PRN Reason: Blood Pressure Magnesium Hydroxide (Milk Of Magnesia) 30 ml PO Q4H PRN PRN Reason: Constipation Metoclopramide HCl (Reglan) 10 mg PO Q6H PRN PRN Reason: Nausea And Vomiting Morphine Sulfate (Morphine) 2 mg IV Q4H PRN PRN Reason: Pain, Moderate (4-6) Last Admin: 03/21/19 00:39 Dose: 2 mg Documented by: Ondansetron HCl (Zofran) 4 mg IV Q8H PRN PRN Reason: Nausea And Vomiting Last Admin: 03/21/19 00:40 Dose: 4 mg Documented by: Promethazine HCl (Phenergan) 25 mg NE Q6H PRN PRN Reason: Nausea And Vomiting Sodium Chloride (Sodium Chloride Flush Syringe 10 Ml) 10 ml IV BID VICKY Sodium Chloride (Sodium Chloride Flush Syringe 10 Ml) 10 ml IV PRN PRN PRN Reason: LINE FLUSH Review of Systems All systems: negative Physical Examination - Vital Signs Vital Signs: Vital Signs Temp Pulse Resp BP Pulse Ox 97.6 F 65 18 197/93 100 03/20/19 15:05 03/20/19 15:05 03/20/19 15:05 03/20/19 15:05 03/20/19 15:05 AO 4 no aphasia or crown nerves have been tested patient has a significant right third nerve palsy he also has mild ptosis over the right which is less likely QUINTON No numbness over the face no loss of sensation over the face face is symmetrical palate elevates symmetrically no deviation of the uvula Pupils are equal round and reactive Eye movements are intact in the left eye Eye movements are not intact in the right eye poor ADduction, with mild ptosis Tongue is midline double vision is significant visual thurman are intact visual acuity bilaterally intact 5 out of 5 strength throughout Sensory intact throughout Cerebellar signs Tone is symmetrical throughout No extra movements Dickerson is steady but with eyes open patient feels unsteady But there is no hemiparetic gait Abdomen soft intact pulses good times for neck is supple Discharge nose or ears Results - Laboratory Findings CBC and BMP: 03/21/19 06:58 03/20/19 15:35 Abnormal Lab Findings: Abnormal Labs 03/20/19 03/20/19 03/21/19 15:35 15:35 06:58 RBC 5.31 H MCV 80 L 79 L MCH 26 L 27 L Lymph % (Auto) 11.1 L [place] % (Auto) 10.6 H Eos % (Auto) 5.6 H Lymph # 0.9 L Seg Neutrophils % 82.2 H Creatinine 0.6 L Glucose 111 H Assessment and Plan Right pupil sparing third nerve palsy less likely solely QUINTON from MS/CVA, because there is ptosis loss of adduction of the right eye and pt arrived n/v, R face numb (stroke deficits), concerning for stroke posterior circulation basilar system karen with concomitant right facial sensation deficits arriving with hypertensive urgency differential diagnosis includes PRES, migraine stroke acute ischemic basilar thrombosis karen lacunar small vessel disease likely secondary to hypertension stable CTA head and neck reassuring for no aneurysm Check UDS for cocaine Aspirin Statin Patch the right eye Telemetry Echocardiogram MRI brain pending Keep patient normotensive euglycemic euthermic A1c and lipid Follow-up ophthalmology new third nerve palsy and CT surgery for aortic coarctation
[2019-03-21] MEDS: ASPIRIN 325 MG TAB PO SCH (09:58)
[2019-03-21 10:48] LABS: BUN/Creatinine Ratio 16; Blood Urea Nitrogen 13 mg/dL (9-20); Calcium 9.1 mg/dL (8.4-10.2); Hemolysis Index 1; LDL Cholesterol,Direct 69 mg/dL (50-130)
--- NOTE | 2019-03-21 14:05 | Progress Note ---
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 We will request neurology follow-up in the a.m. He has been started on daily aspirin. Will monitor neurological status. (2) Hypertensive urgency Current Visit: Yes Status: Acute Plan to address problem: We will monitor vital signs closely. Patient will be given IV hydralazine as needed for blood pressure control. (3) DVT prophylaxis Current Visit: Yes Status: Acute Plan to address problem: Patient placed on subcutaneous heparin. (4) Full code status Current Visit: Yes Status: Acute Subjective Date of service: 03/21/19 Objective - Constitutional Vitals: Vital Signs - 12hr 03/21/19 03/21/19 03/21/19 05:31 06:29 08:15 Temperature 97.9 F Pulse Rate 54 L 55 L Respiratory 20 18 Rate Blood Pressure 163/72 156/75 O2 Sat by Pulse 92 93 93 Oximetry 03/21/19 11:40 Temperature 98.1 F Pulse Rate 53 L Respiratory 20 Rate Blood Pressure 171/74 O2 Sat by Pulse 95 Oximetry General appearance: Present: no acute distress, well-nourished - EENT Eyes: PERRL, EOM intact ENT: hearing intact, clear oral mucosa Ears: bilateral: normal - Neck Neck: supple, normal ROM - Respiratory Respiratory effort: normal Respiratory: bilateral: CTA - Breasts Breasts: normal - Cardiovascular Rhythm: regular Heart Sounds: Present: S1 & S2. Absent: gallop, rub Extremities: pulses intact, No edema, normal color, Full ROM - Gastrointestinal General gastrointestinal: Present: soft, non-tender, non-distended, normal bowel sounds - Genitourinary Male genitourinary: normal - Integumentary Integumentary: clear, warm, dry - Musculoskeletal Musculoskeletal: 1, strength equal bilaterally - Neurologic Neurologic: moves all extremities - Psychiatric Psychiatric: memory intact, appropriate mood/affect, intact judgment & insight - Labs CBC & Chem 7: 03/21/19 06:58 03/21/19 06:58 Labs: Abnormal lab results 03/20/19 03/20/19 03/21/19 Range/Units 15:35 15:35 06:58 RBC 5.31 H (3.65-5.03) M/mm3 MCV 80 L 79 L (84-94) fl MCH 26 L 27 L (28-32) pg Lymph % (Auto) 11.1 L (13.4-35.0) % [place] % (Auto) 10.6 H (0.0-7.3) % Eos % (Auto) 5.6 H (0.0-4.3) % Lymph # 0.9 L (1.2-5.4) K/mm3 Seg Neutrophils % 82.2 H (40.0-70.0) % Potassium (3.6-5.0) mmol/L Creatinine 0.6 L (0.8-1.5) mg/dL Glucose 111 H (75-100) mg/dL 03/21/19 Range/Units 06:58 RBC (3.65-5.03) M/mm3 MCV (84-94) fl MCH (28-32) pg Lymph % (Auto) (13.4-35.0) % [place] % (Auto) (0.0-7.3) % Eos % (Auto) (0.0-4.3) % Lymph # (1.2-5.4) K/mm3 Seg Neutrophils % (40.0-70.0) % Potassium 3.5 L (3.6-5.0) mmol/L Creatinine (0.8-1.5) mg/dL Glucose (75-100) mg/dL
--- NOTE | 2019-03-21 14:28 | Discharge Summary ---
Providers - Providers Date of Admission: 03/20/19 21:30 Date of discharge: 03/21/19 Attending physician: PAUL BARRAZA 03/20/19 22:36 Consult to Physician [CONS] Routine Comment: Consulting Provider: ISMAEL MARTIN Physician Instructions: Reason For Exam: r/o CVA 03/20/19 22:37 Consult to Dietitian/Nutrition [CONS] Routine Physician Instructions: Reason For Exam: Reason for Consult: Nutrition Recommendations Reason for Consult: Diet education Occupational Therapy Evaluate and Treat [CONS] Routine Comment: Reason For Exam: Neuro deficits Physical Therapy Evaluation and Treat [CONS] Routine Comment: Reason For Exam: Neuro deficits Primary care physician: BRUSH CLEANER Hospitalization Condition: Stable Hospital course: 39-year-old male with a history of eating too much salts lots of red meats smoking and drinking lots of alcohol per does not have a significant past medical history arrives with acute onset of double vision and right face numbness yesterday that started around 9 AM patient arrived with hypertensive urgency 197/93 189/86 denies history of stroke in the past and denies cocaine use Patient denies blurred vision out of the right eye or left eye in fact his complaint is double vision with binocular vision It all started yesterday without loss of consciousness, seizure , patient also adds that his gait was unsteady he had numbness over the right side of his face tingling over the right side of his face On admission EKG normal sinus rhythm No atrial fibrillation on telemetry and no recurrent strokes since admission CTA chest revealed corks and of the aorta Patient did have a headache in the back of his head nonradiating 6 out of 10 no migraine features constant dull No fevers no neck stiffness No rash or symptoms to suggest meningitis Today he feels the right side of his face tingling has resolved but still has double vision and there is an obvious R third nerve palsy/right eye QUINTON, pupils sparing Currently no other focal deficits No neurological deterioration since admission No ongoing nausea vomiting vertigo, but did arrive with nausea vomiting Patient denies any seizures or loss of consciousness since admission Does add that his balance is off but that is mainly because of his eyes CT of the head reviewed and a ICP CTA head and neck reviewed no large vessel occlusion Patient endorses lightheadedness but that has improved Family history significant for cancer in the mother and sister brain tumors Social history smoking alcohol use denies drugs and cocaine Review of systems all other systems negative No prior history of MS Past History Past Surgical History: No surgical history Social history: smoking (Smokes about half a pack of cigarette daily), alcohol abuse (Drinks occasionally on the weekends) Family history: cancer (Mother had lung cancer and sister had brain tumor) Review of Systems All systems: negative Physical Examination - Vital Signs Vital Signs: Vital Signs Temp Pulse Resp BP Pulse Ox 97.6 F 65 18 197/93 100 03/20/19 15:05 03/20/19 15:05 03/20/19 15:05 03/20/19 15:05 03/20/19 15:05 AO 4 no aphasia or crown nerves have been tested patient has a significant right third nerve palsy he also has mild ptosis over the right which is less likely QUINTON No numbness over the face no loss of sensation over the face face is symmetrical palate elevates symmetrically no deviation of the uvula Pupils are equal round and reactive Eye movements are intact in the left eye Eye movements are not intact in the right eye poor ADduction, with mild ptosis Tongue is midline double vision is significant visual thurman are intact visual acuity bilaterally intact 5 out of 5 strength throughout Sensory intact throughout Cerebellar signs Tone is symmetrical throughout No extra movements Dickerson is steady but with eyes open patient feels unsteady But there is no hemiparetic gait Abdomen soft intact pulses good times for neck is supple Discharge nose or ears Assessment and Plan Right pupil sparing third nerve palsy less likely solely QUINTON from MS/CVA, because there is ptosis loss of adduction of the right eye and pt arrived n/v, R face numb (stroke deficits), concerning for stroke posterior circulation basilar system karen with concomitant right facial sensation deficits arriving with hypertensive urgency differential diagnosis includes PRES, migraine stroke acute ischemic basilar thrombosis karen lacunar small vessel disease likely secondary to hypertension stable CTA head and neck reassuring for no aneurysm Check UDS for cocaine Aspirin Statin Patch the right eye Telemetry Echocardiogram MRI brain pending Keep patient normotensive euglycemic euthermic A1c and lipid Follow-up ophthalmology new third nerve palsy and CT surgery for aortic coarctation (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 We will request neurology follow-up in the a.m. He has been started on daily aspirin. Will monitor neurological status. (2) Hypertensive urgency Current Visit: Yes Status: Acute Plan to address problem: We will monitor vital signs closely. Patient will be given IV hydralazine as needed for blood pressure control. (3) DVT prophylaxis Current Visit: Yes Status: Acute Plan to address problem: Patient placed on subcutaneous heparin. (4) Full code status Current Visit: Yes Status: Acute Disposition: DC-01 TO HOME OR SELFCARE Exam - Constitutional Vitals: Temp Pulse Resp BP Pulse Ox 98.1 F 53 L 20 171/74 95 03/21/19 11:40 03/21/19 11:40 03/21/19 11:40 03/21/19 11:40 03/21/19 11:40 Plan Follow up with: PRIMARY MD LATRICE [Primary Care Provider] - 3-5 Days
--- NOTE | 2019-03-21 14:31 | Discharge Summary ---
Providers - Providers Date of Admission: 03/20/19 21:30 Date of discharge: 03/22/19 Attending physician: PAUL BARRAZA 03/20/19 22:36 Consult to Physician [CONS] Routine Comment: Consulting Provider: ISMAEL MARTIN Physician Instructions: Reason For Exam: r/o CVA 03/20/19 22:37 Consult to Dietitian/Nutrition [CONS] Routine Physician Instructions: Reason For Exam: Reason for Consult: Nutrition Recommendations Reason for Consult: Diet education Occupational Therapy Evaluate and Treat [CONS] Routine Comment: Reason For Exam: Neuro deficits Physical Therapy Evaluation and Treat [CONS] Routine Comment: Reason For Exam: Neuro deficits Primary care 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 6 mm chronic lacunar infarct in the right thalamus. Mild chronic sinusitis. MRA Head IMPRESSION: No significant abnormality. Hospital course: 1.CVA of Tectum--A 3 mm focus of diffusion restriction is identified in the tectum just to the right of midline. This is in close vicinity to the right inferior colliculus Right pupil sparing third nerve palsy less likely solely QUINTON from MS/CVA, because there is ptosis loss of adduction of the right eye and pt arrived n/v, R face numb (stroke deficits), concerning for stroke posterior circulation basilar system karen with concomitant right facial sensation deficits arriving with hypertensive urgency differential diagnosis includes PRES, migraine stroke acute ischemic basilar thrombosis karen lacunar small vessel disease likely secondary to hypertension stable CTA head and neck reassuring for no aneurysm HTN Discharge on Plavix ,ASA Statins and Antihypertensives Follow-up ophthalmology new third nerve palsy and CT surgery for aortic coarctat ion Disposition: DC-01 TO HOME OR SELFCARE Core Measure Documentation - Palliative Care Palliative Care/ Comfort Measures: Not Applicable - Core Measures Any of the following diagnoses?: stroke - Stroke Discharge Requirements Statin for LDL = or >70 mg/dl on DC: Yes Anticoag for atrial fib/atrial flutter: Not Applicable Antithrombotic for ischemic stroke: Yes Exam - Constitutional Vitals: Temp Pulse Resp BP Pulse Ox 98.1 F 53 L 20 171/74 95 03/21/19 11:40 03/21/19 11:40 03/21/19 11:40 03/21/19 11:40 03/21/19 11:40 General appearance: Present: no acute distress, well-nourished - EENT Eyes: Present: PERRL ENT: hearing intact, clear oral mucosa, other (Rt 3 rd nerve palsy) - Neck Neck: Present: supple, normal ROM - Respiratory Respiratory effort: normal Respiratory: bilateral: CTA - Cardiovascular Heart Sounds: Present: S1 & S2. Absent: rub, click - Extremities Extremities: pulses symmetrical, No edema Peripheral Pulses: within normal limits - Abdominal General gastrointestinal: Present: soft, non-tender, non-distended, normal bowel sounds Male genitourinary: Present: normal - Integumentary Integumentary: Present: clear, warm, dry - Musculoskeletal Musculoskeletal: gait normal, strength equal bilaterally - Psychiatric Psychiatric: appropriate mood/affect, intact judgment & insight - Neurologic Neurologic: CNII-XII intact, focal deficits (Rt 3 rd nerve palsy), moves all extremities - Allied Health Allied health notes reviewed: nursing, case management Plan Activity: no restrictions Diet: regular Follow up with: PRIMARY CAREMD [Primary Care Provider] - 3-5 Days PAUL BARRAZA MD [Staff Physician] - 7 Days
--- NOTE | 2019-03-21 14:32 | Progress Note ---
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 Patient will be given IV hydralazine as needed for blood pressure control. losartan initiated (3) DVT prophylaxis Current Visit: Yes Status: Acute Plan to address problem: Patient placed on subcutaneous heparin. (4) Full code status Current Visit: Yes Status: Acute Subjective Date of service: 03/20/19 Principal diagnosis: 3 rd nerve palsy Interval history: 39-year-old male with no significant past medical history presenting to the emergency room today complaining of blurry vision which started earlier in the morning today. He states he has been having double vision, dizziness, lightheadedness, headache, nausea, vomiting, tingling in the right side of his face. He denies having similar problems in the past. Denies any numbness or weakness in his extremities. Denies any unsteady gait. Indicates he has double vision especially when he has both eyes open. He denies any fever or chills. Patient was evaluated by teleneurologist and recommended to be worked up for possible CVA. His work-up however included CT angiogram of the neck which reveals coarctation of the aorta. Thoracic surgeon was consulted by the ER physician and recommendation is to schedule patient for an echocardiogram and have patient f ollow up on outpatient basis. Objective - Constitutional Vitals: Vital Signs - 12hr 03/21/19 03/21/19 03/21/19 05:31 06:29 08:15 Temperature 97.9 F Pulse Rate 54 L 55 L Respiratory 20 18 Rate Blood Pressure 163/72 156/75 O2 Sat by Pulse 92 93 93 Oximetry 03/21/19 11:40 Temperature 98.1 F Pulse Rate 53 L Respiratory 20 Rate Blood Pressure 171/74 O2 Sat by Pulse 95 Oximetry - Labs CBC & Chem 7: 03/21/19 06:58 03/21/19 06:58 Labs: Abnormal lab results 03/20/19 03/20/19 03/21/19 Range/Units 15:35 15:35 06:58 RBC 5.31 H (3.65-5.03) M/mm3 MCV 80 L 79 L (84-94) fl MCH 26 L 27 L (28-32) pg Lymph % (Auto) 11.1 L (13.4-35.0) % Stewart % (Auto) 10.6 H (0.0-7.3) % Eos % (Auto) 5.6 H (0.0-4.3) % Lymph # 0.9 L (1.2-5.4) K/mm3 Seg Neutrophils % 82.2 H (40.0-70.0) % Potassium (3.6-5.0) mmol/L Creatinine 0.6 L (0.8-1.5) mg/dL Glucose 111 H (75-100) mg/dL 03/21/19 Range/Units 06:58 RBC (3.65-5.03) M/mm3 MCV (84-94) fl MCH (28-32) pg Lymph % (Auto) (13.4-35.0) % Stewart % (Auto) (0.0-7.3) % Eos % (Auto) (0.0-4.3) % Lymph # (1.2-5.4) K/mm3 Seg Neutrophils % (40.0-70.0) % Potassium 3.5 L (3.6-5.0) mmol/L Creatinine (0.8-1.5) mg/dL Glucose (75-100) mg/dL
[2019-03-21 15:41] LABS: Amphetamine Screen,Urine PRESUMPTIVE NEGATIVE; Benzodiazepines Screen,Urine PRESUMPTIVE NEGATIVE; Cannabinoid Screen,Urine PRESUMPTIVE NEGATIVE; Cocaine Screen,Urine PRESUMPTIVE NEGATIVE; Methadone Screen,Urine PRESUMPTIVE NEGATIVE; Opiate Screen,Urine PRESUMPTIVE NEGATIVE
[2019-03-21] MEDS: LOSARTAN 50 MG TAB PO SCH (15:53)
[2019-03-22 05:43] LABS: Chol/HDL Ratio 2.86 %; HDL Cholesterol 44 mg/dL (40-59)
[2019-03-22] MEDS: HEPARIN 5,000 UNIT/1 ML VIAL SUB-Q SCH ×2 (06:15→13:25)
[2019-03-22] MEDS: LOSARTAN 50 MG TAB PO SCH (09:44)
[2019-03-22] MEDS: ASPIRIN 325 MG TAB PO SCH (09:45)
--- NOTE | 2019-03-22 12:15 | Magnetic Resonance Report ---
MRI BRAIN WITHOUT CONTRAST INDICATION / CLINICAL INFORMATION: stroke. TECHNIQUE: Multisequence, multiplanar images were obtained. COMPARISON: CT head dated 03/20/2019 FINDINGS: CEREBRAL and CEREBELLAR HEMISPHERES: A 3 mm focus of diffusion restriction is identified in the tectu m just to the right of midline. This is in close vicinity to the right inferior colliculus and the ce rebral aqueduct. No other areas of diffusion restriction are identified. A 6 mm chronic lacunar infar ct is identified in the right thalamus. Less likely this could represent a dilated perivascular space . The remaining brain parenchyma demonstrates normal signal on all sequences. The martin-white interfac e is well-defined. No evidence for hemorrhage, mass or extra-axial fluid collection. VENTRICLES: Normal in size and configuration for age. VISUALIZED ORBITS: No significant abnormality. VISUALIZED PARANASAL SINUSES: There is mild diffuse mucosal thickening throughout all paranasal sinus es. The mastoid air cells are well aerated. ADDITIONAL FINDINGS: None. IMPRESSION: 3 mm focus of subacute ischemia in the right side of the tectum as described above. 6 mm chronic lacunar infarct in the right thalamus. Mild chronic sinusitis. MRA HEAD WITHOUT CONTRAST HISTORY: Stroke COMPARISON: None. TECHNIQUE: Routine MRA of the head is performed. 3-D/MIP reformats postprocessed. CONTRAST: None. FINDINGS: Intracranial vertebral arteries: No significant abnormality. The right vertebral artery is dominant. Basilar artery: No significant abnormality. Posterior cerebral arteries: No significant abnormality. Intracranial internal carotid arteries: No significant abnormality. Anterior cerebral arteries: No significant abnormality. Middle cerebral arteries: No significant abnormality. Additional findings: Large bilateral posterior communicating arteries are identified. IMPRESSION: No significant abnormality. Signer Name: Shawn Aaron Jr, MD Signed: 03/22/2019 12:11 PM Workstation Name: [id number]
[2019-03-22 18:10] VITALS: BP 154/72
--- NOTE | 2019-03-23 07:36 | Vascular Lab Report ---
BILATERAL CAROTID DOPPLER ULTRASOUND INDICATION : stroke TECHNIQUE: Grayscale and color Doppler imaging performed through the neck. COMPARISON: CTA neck dated 03/20/2019. FINDINGS: Right: There is no significant atherosclerotic disease. Peak systolic velocity in the CCA is 81 cm/ s with end-diastolic velocity of 17 cm/s. Peak systolic velocity in the proximal ICA is 108 cm/s with end-diastolic velocity of 188 cm/s. ICA to CCA ratio is less than 2. There is antegrade flow in the ECA and the vertebral artery. Left: There is no significant atherosclerotic disease. Peak systolic velocity in the CCA is 101 cm/s with end-diastolic velocity of 12 cm/s. Peak systolic velocity in the proximal ICA is 96 cm/s with en d-diastolic velocity of 25 cm/s. ICA to CCA ratio is less than 2. There is antegrade flow in the ECA and the vertebral artery. IMPRESSION: No hemodynamically significant stenosis by NASCET criteria. Normal exam. Signer Name: Shawn Aaron Jr, MD Signed: 03/23/2019 7:32 AM Workstation Name: [id number]
== END 2019-03-22 18:45 | disposition home or self-care (01) | DRG 66 ==
LOC: ED 14:54 → 3A 21:30 → OBSVTOIN 03-22 10:20
PROVIDERS: ADMIT Internal Medicine Geriatric Medicine; ATTEND Internal Medicine
DX: I63.9 Cerebral infarction, unspecified (principal); I16.0 Hypertensive urgency; H51.20 Internuclear ophthalmoplegia, unspecified eye; G58.9 Mononeuropathy, unspecified; R29.702 NIHSS score 2; F17.210 Nicotine dependence, cigarettes, uncomplicated; F10.10 Alcohol abuse, uncomplicated; Z85.118 Personal history of other malignant neoplasm of bronchus and lung
CPT/HCPCS: 36415; 70450; 70496; 70498; 70544; 70551; 80048; 80053; 80061; 80307; 81001; 82550; 82553; 84484; 85025; 85610; 85670; 85730; 93005; 93010; 93306; 93880; 99406; G0378; J0360; J1644; J2270; J2765; J7040; Q9967